=== PATIENT | female | born 1945 | race Two or more races ===

== ENCOUNTER 2021-04-10 15:54 | Inpatient (IN) | payer OTHER ==
[~2021-04-10] VITALS: Ht 162.6 cm; Wt 69.6 kg
[2021-04-10] MEDS ORDERED: MORPHINE SULFATE 4 MG/ML SYR/VIAL IV ONE (16:30)
[2021-04-10] MEDS ORDERED: ONDANSETRON HCL 4 MG/2 ML VIAL IV ONE (16:30)
[2021-04-10 16:45] LABS: Basophils # (auto) 0 10 ^3/uL (0-0.2); Basophils % (auto) 0.8 % (0.0-2.0); Eosinophils # (auto) 0.1 10 ^3/uL (0-0.8); Eosinophils % (auto) 1.8 % (0.0-7.0); Hematocrit 40.6 % (36.0-46.0); Hemoglobin 14.2 g/dL (12.2-16.2); Lymphocytes # (auto) 0.9 10 ^3/uL (0.4-5.4); Lymphocytes % (auto) 16.8 % (10.0-50.0); Mean Corpuscular Hemoglobin 30.7 pg (28.0-32.0); Mean Corpuscular Hgb Conc. 35.1 g/dL (32.0-36.0); Mean Corpuscular Volume 87.6 fL (80.0-100.0); Monocytes # (auto) 0.3 10 ^3/uL (0-1.3); Neutrophils # (auto) 4.1 10 ^3/uL (1.6-8.6); Neutrophils % (auto) 74.6 % (37.0-80.0); Nucleated Red Blood Cells % 0.1 %; Platelet Count (auto) 124 10^3/uL (140-450); Red Blood Cells 4.63 10^6/uL (4.0-5.20); Red Cell Distribution Width 13.9 % (11.8-14.3); White Blood Cell 5.5 10^3/uL (4.4-10.8)
[2021-04-10 16:56] LABS: Albumin 3.5 g/dL (3.4-5.0); Amylase 45 U/L (25-115); Anion Gap 8 (5-15); BUN/Creatinine Ratio 12.9; Blood Urea Nitrogen 11 mg/dL (7-18); Calcium 10.6 mg/dL (8.5-10.1); Carbon Dioxide 22 mmol/L (21-32); Chloride 110 mmol/L (98-107); GFR African American 84 mL/min; GFR Non-African American 69 mL/min; Glucose 157 mg/dL (74-106); Lipase 112 U/L (73-393); Sodium 140 mmol/L (136-145)
[2021-04-10 17:02] LABS: Alanine Aminotransferase 17 U/L (13-56); Alkaline Phosphatase 147 U/L (45-117); Aspartate Aminotransferase 16 U/L (15-37); Bilirubin, Total 0.7 mg/dL (0.2-1.0); Total Protein 7.3 g/dL (6.4-8.2)
[2021-04-10 17:15] LABS: Urine Blood 3+ /uL (Negative); Urine Mucus FEW (None Seen); Urine Specific Gravity 1.014 (1.001-1.035); Urine WBC 26 /hpf (0 - 5)
[2021-04-10] MEDS ORDERED: ACETAMINOPHEN 325 MG TAB PO ONE (17:15)
[2021-04-10 17:16] LABS: Urine Bacteria FEW /hpf (None Seen)
[2021-04-10] MEDS ORDERED: HYDROmorphone HCL 2 MG/ML VL IV PRN (17:30)
[2021-04-10] MEDS ORDERED: ACETAMINOPHEN 500 MG TAB PO PRN (17:30)
[2021-04-10] MEDS ORDERED: DEXTROSE (50%) 50ML SYRG IV PRN (17:30)
[2021-04-10] MEDS ORDERED: ISOSORBIDE DINITRATE 10 MG TAB PO ONE (17:30)
[2021-04-10] MEDS ORDERED: ONDANSETRON HCL 4 MG/2 ML VIAL IV PRN (17:30)
[2021-04-10] MEDS ORDERED: cefTRIAXone 1GM/50ML D5W 50 ML IV ONE (17:30)
[2021-04-10] MEDS ORDERED: DOXAZOSIN MESYL 2 MG TAB PO ONE (17:30)
[2021-04-10] MEDS ORDERED: HYDROcodone-ACET 5/325MG TAB PO PRN (17:30)
[2021-04-10] MEDS ORDERED: GLUCAGON HYDROCHLORIDE (RDNA) 1 MG VIAL IM ONE (17:30)
[2021-04-10] MEDS ORDERED: LACTULOSE 20Gm/30ML SOLN PO PRN (17:30)
[2021-04-10] MEDS ORDERED: NITROGLYCERIN 0.4 MG SL TAB SL PRN (17:30)
[2021-04-10] MEDS: SODIUM CHLORIDE 0.9% 1,000 ML IV SCH (17:58)
[2021-04-10] MEDS ORDERED: LEVOTHYROXINE SODIUM 25 MCG TAB PO ONE (20:00)
[2021-04-10] MEDS ORDERED: ENOXAPARIN SOD 80 MG/0.8ML SYRINGE SC SCH (22:00)
[2021-04-10] MEDS: ACCU-CHEK COMFORT CURVE STRIP VI SCH (22:15)
[2021-04-10] MEDS: InsuLIN REG 1unit/0.01ml Soln (100units/ml) SC SCH (22:26)
[2021-04-10] MEDS: FAMOTIDINE 20 MG TAB PO SCH (22:27)
[2021-04-11 02:40] VITALS: BP 135/72
[2021-04-11] MEDS: SODIUM CHLORIDE 0.9% 1,000 ML IV SCH ×3 (03:30→18:17)
[2021-04-11] MEDS ORDERED: CHOL20007 PO (03:56)
[2021-04-11] MEDS ORDERED: LEV75T PO (03:56)
[2021-04-11] MEDS ORDERED: CYAN-17 PO (03:56)
[2021-04-11 05:00] VITALS: BP 122/63
[2021-04-11] MEDS: ISOSORBIDE DINITRATE 10 MG TAB PO SCH ×3 (06:05→17:43)
[2021-04-11] MEDS: LEVOTHYROXINE SODIUM 25 MCG TAB PO SCH (06:49)
[2021-04-11] MEDS: InsuLIN REG 1unit/0.01ml Soln (100units/ml) SC SCH ×4 (06:51→21:45)
[2021-04-11] MEDS: ACCU-CHEK COMFORT CURVE STRIP VI SCH ×4 (06:51→21:45)
[2021-04-11 09:00] VITALS: BP 120/57
[2021-04-11] MEDS: FAMOTIDINE 20 MG TAB PO SCH ×2 (10:47→21:45)
[2021-04-11] MEDS ORDERED: MANNITOL 20% SOLN 100 gm/500ml 100 ML IV ONE (11:30)
[2021-04-11] MEDS: DOXAZOSIN MESYL 2 MG TAB PO SCH ×2 (11:56→21:46)
[2021-04-11] MEDS: cefTRIAXone 1GM/50ML D5W 50 ML IV SCH (11:56)
[2021-04-11 13:00] VITALS: BP 131/68
[2021-04-11 17:30] VITALS: BP 133/62
[2021-04-11 22:00] VITALS: BP 112/58
[2021-04-12 05:00] VITALS: BP 152/72
[2021-04-12] MEDS: ISOSORBIDE DINITRATE 10 MG TAB PO SCH ×5 (06:00→17:22)
[2021-04-12] MEDS: ACCU-CHEK COMFORT CURVE STRIP VI SCH ×4 (06:15→21:40)
[2021-04-12] MEDS: LEVOTHYROXINE SODIUM 25 MCG TAB PO SCH ×2 (06:15→06:31)
[2021-04-12] MEDS: InsuLIN REG 1unit/0.01ml Soln (100units/ml) SC SCH ×4 (06:31→21:40)
[2021-04-12 08:00] VITALS: BP 164/70
[2021-04-12] MEDS: SODIUM CHLORIDE 0.9% 1,000 ML IV SCH ×2 (09:30→19:30)
[2021-04-12] MEDS: FAMOTIDINE 20 MG TAB PO SCH (09:41)
[2021-04-12] MEDS: DOXAZOSIN MESYL 2 MG TAB PO SCH ×2 (09:41→21:58)
[2021-04-12] MEDS: cefTRIAXone 1GM/50ML D5W 50 ML IV SCH (09:41)
[2021-04-12] MEDS ORDERED: HCTZ 25 MG TAB PO ONE (11:00)
[2021-04-12 11:59] VITALS: BP 152/71
[2021-04-12] MEDS ORDERED: MINOXIDIL 2.5 MG TAB PO SCH (12:30)
[2021-04-12 16:00] VITALS: BP 134/72
[2021-04-12] MEDS ORDERED: MANNITOL FTV 25% 12.5 GM/50 ML 50 ML IV ONE (20:15)
[2021-04-12 21:47] VITALS: BP 129/75
[2021-04-13] MEDS ORDERED: HCTZ 25 MG TAB PO SCH (10:00)
[2021-04-13] MEDS ORDERED: FAMOTIDINE 20 MG TAB PO SCH (10:00)
== END 2021-04-12 23:15 | disposition left against medical advice (07) | DRG 690 ==
LOC: ER 15:54 → TELE 17:22 → TELE-EAST 22:32
PROVIDERS: ADMIT Internal Medicine; ATTEND Family Medicine
DX: N13.6 Pyonephrosis (principal); I48.91 Unspecified atrial fibrillation; I16.0 Hypertensive urgency; E03.9 Hypothyroidism, unspecified; K57.30 Diverticulosis of large intestine without perforation or abscess without bleeding; Z87.19 Personal history of other diseases of the digestive system; I10 Essential (primary) hypertension; Z53.29 Procedure and treatment not carried out because of patient's decision for other reasons; K21.9 Gastro-esophageal reflux disease without esophagitis; F41.9 Anxiety disorder, unspecified; R00.1 Bradycardia, unspecified; E66.9 Obesity, unspecified; E11.9 Type 2 diabetes mellitus without complications; Z88.8 Allergy status to other drugs, medicaments and biological substances; Z88.5 Allergy status to narcotic agent; Z88.0 Allergy status to penicillin; Z88.2 Allergy status to sulfonamides; Z85.3 Personal history of malignant neoplasm of breast; Z79.899 Other long term (current) drug therapy; Z80.3 Family history of malignant neoplasm of breast; Z80.1 Family history of malignant neoplasm of trachea, bronchus and lung; Z83.3 Family history of diabetes mellitus; Z90.11 Acquired absence of right breast and nipple; Z90.710 Acquired absence of both cervix and uterus; Z90.49 Acquired absence of other specified parts of digestive tract; Z86.73 Personal history of transient ischemic attack (TIA), and cerebral infarction without residual deficits; Z68.25 Body mass index [BMI] 25.0-25.9, adult; Z91.19 Patient's noncompliance with other medical treatment and regimen; Z82.3 Family history of stroke; Z82.49 Family history of ischemic heart disease and other diseases of the circulatory system; Z20.822 Contact with and (suspected) exposure to COVID-19
CPT/HCPCS: 36415; 71045; 73562; 74018; 74176; 76775; 80053; 81001; 82150; 82550; 82565; 82962; 83036; 83690; 83880; 84443; 84484; 85025; 85049; 87086; 87426; 93005; 93306; 93971; 96365; 96372; 96375; G0378; J0696; J1815; J2405

== ENCOUNTER 2021-06-10 11:23 | Inpatient (IN) | payer OTHER ==
[~2021-06-10] VITALS: Ht 162.6 cm; Wt 71.6 kg
[~2021-06-10 11:23] MED LIST: CHOL20007 PO; CYAN-17 PO; LEV75T PO
[2021-06-10 12:06] LABS: Basophils # (auto) 0 10 ^3/uL (0-0.2); Basophils % (auto) 0.6 % (0.0-2.0); Eosinophils # (auto) 0.1 10 ^3/uL (0-0.8); Eosinophils % (auto) 2.2 % (0.0-7.0); Hematocrit 40.7 % (36.0-46.0); Hemoglobin 14.1 g/dL (12.2-16.2); Lymphocytes # (auto) 0.9 10 ^3/uL (0.4-5.4); Mean Corpuscular Hemoglobin 30.8 pg (28.0-32.0); Mean Corpuscular Hgb Conc. 34.6 g/dL (32.0-36.0); Mean Corpuscular Volume 89.3 fL (80.0-100.0); Monocytes # (auto) 0.3 10 ^3/uL (0-1.3); Monocytes % (auto) 5.8 % (0.0-12.0); Neutrophils # (auto) 3.4 10 ^3/uL (1.6-8.6); Neutrophils % (auto) 72.4 % (37.0-80.0); Nucleated Red Blood Cells % 0.1 %; Red Blood Cells 4.56 10^6/uL (4.0-5.20); Red Cell Distribution Width 14.3 % (11.8-14.3); White Blood Cell 4.6 10^3/uL (4.4-10.8)
[2021-06-10 12:27] LABS: Albumin 3.4 g/dL (3.4-5.0); Calcium 10.7 mg/dL (8.5-10.1)
[2021-06-10 12:32] LABS: BUN/Creatinine Ratio 12.8; Bilirubin, Total 1.4 mg/dL (0.2-1.0); Total Protein 6.9 g/dL (6.4-8.2)
[2021-06-10 16:22] LABS: Urine Bacteria FEW /hpf (None Seen); Urine Blood 3+ /uL (Negative); Urine Specific Gravity 1.005 (1.001-1.035); Urine WBC 2 /hpf (0 - 5)
[2021-06-10] MEDS ORDERED: KETOROLAC TROMETH 30 MG/ML 1ML VIAL IV ONE (17:00)
[2021-06-10] MEDS ORDERED: SODIUM CHLORIDE 0.9% 1,000 ML IV ONE ×2 (17:00)
[2021-06-10] MEDS ORDERED: TAMSULOSIN HYDROCHLORIDE 0.4 MG CAP PO ONE (17:00)
[2021-06-10] MEDS ORDERED: NITROGLYCERIN 0.4 MG SL TAB SL PRN ×2 (17:30→20:15)
[2021-06-10] MEDS ORDERED: MORPHINE SULFATE INJECTION 2 MG/ML SYRG IV PRN ×3 (17:30→20:15)
[2021-06-10] MEDS ORDERED: HYDROcodone-ACET 5/325MG TAB PO PRN ×2 (20:15→20:45)
[2021-06-10] MEDS ORDERED: DOCUSATE SOD 100 MG CAP PO PRN (20:15)
[2021-06-10] MEDS ORDERED: ALUM & MAG HYDROX-SIMETH LIQ(MAALOX) 30 ML PO PRN (20:15)
[2021-06-10] MEDS ORDERED: MEROPENEM 1GM IVPB 100 ML IV ONE (20:15)
[2021-06-10] MEDS ORDERED: ACETAMINOPHEN 325 MG TAB PO PRN (20:15)
[2021-06-10] MEDS ORDERED: hydrALAZINE HCL 20 MG/ML VL IV PRN (20:15)
[2021-06-10] MEDS ORDERED: LACTATED RINGER'S 1,000 ML IV ONE (20:15)
[2021-06-10] MEDS ORDERED: ONDANSETRON HCL 4 MG/2 ML VIAL IV PRN (20:15)
[2021-06-10] MEDS: SODIUM CHLORIDE 0.9% 1,000 ML IV SCH (20:29)
[2021-06-10] MEDS ORDERED: ATORVASTATIN 20 MG TAB PO SCH (22:00)
[2021-06-10 22:36] LABS: Uric Acid 5.5 mg/dL (2.6-6.0)
[2021-06-10 22:41] LABS: Cholesterol 204 mg/dL (< 200); HDL Cholesterol 38 mg/dL (40-59); LDL Cholesterol 134 mg/dL (< 100); Triglycerides 154 mg/dL (< 150)
[2021-06-10 22:45] LABS: Free T3 2.04 pg/mL (2.3-4.2); Free T4 (Free Thyroxine) 0.74 ng/dL (0.89-1.76)
[2021-06-10 22:50] LABS: Amphetamine Screen, Urine NEGATIVE (NEGATIVE); Barbiturate Scree,Urine NEGATIVE (NEGATIVE); Benzodiazephine Screen, Urine NEGATIVE (NEGATIVE); Cannabinoid Screen, Urine NEGATIVE (NEGATIVE); Cocaine Screen, Urine NEGATIVE (NEGATIVE); Opiate Scree,Urine NEGATIVE (NEGATIVE); Phencyclidine Screen, Urine NEGATIVE (NEGATIVE)
[2021-06-11] VITALS: BP 162/79
[2021-06-11] MEDS: SODIUM CHLORIDE 0.9% 1,000 ML IV SCH ×3 (04:05→20:15)
[2021-06-11 05:32] VITALS: BP 159/63
[2021-06-11] MEDS: FUROSEMIDE 20 MG/2 ML VIAL IV SCH ×2 (05:40→17:12)
[2021-06-11] MEDS: LEVOTHYROXINE SODIUM 25 MCG TAB PO SCH (06:33)
[2021-06-11] MEDS: MEROPENEM 1GM IVPB 100 ML IV SCH ×2 (08:00→19:33)
[2021-06-11 09:00] VITALS: BP 154/70
[2021-06-11] MEDS: CYANOCOBALAMIN 500 MCG TAB PO SCH (09:09)
[2021-06-11] MEDS: ISOSORBIDE MONONITRATE ER 60 MG TAB PO SCH (09:09)
[2021-06-11] MEDS: CHOLECALCIFEROL (VITD3) 2,000 UNIT CAP/TAB PO SCH (09:10)
[2021-06-11] MEDS: ENOXAPARIN SOD 40 MG/0.4 ML SYRINGE SC SCH (09:10)
[2021-06-11] MEDS: ASPirin 81 mg TAB PO SCH (10:00)
[2021-06-11] MEDS ORDERED: DEXTROSE (50%) 50ML SYRG IV PRN (10:45)
[2021-06-11] MEDS ORDERED: ATENOLOL 50 MG TAB PO ONE (10:45)
[2021-06-11] MEDS: ACCU-CHEK COMFORT CURVE STRIP VI SCH ×3 (11:30→21:35)
[2021-06-11] MEDS: InsuLIN REG 1unit/0.01ml Soln (100units/ml) SC SCH ×3 (11:30→21:36)
[2021-06-11 13:00] VITALS: BP 149/79
[2021-06-11 17:00] VITALS: BP 151/63
[2021-06-11] MEDS: TAMSULOSIN HYDROCHLORIDE 0.4 MG CAP PO SCH (17:13)
[2021-06-11 22:00] VITALS: BP 119/60
[2021-06-12] MEDS: SODIUM CHLORIDE 0.9% 1,000 ML IV SCH ×3 (01:17→20:35)
[2021-06-12] MEDS: LORazepam 0.5 MG TAB PO PRN ×2 (02:23→23:09)
[2021-06-12 05:00] VITALS: BP 134/59
[2021-06-12] MEDS: FUROSEMIDE 20 MG/2 ML VIAL IV SCH ×2 (05:35→16:53)
[2021-06-12] MEDS: LEVOTHYROXINE SODIUM 25 MCG TAB PO SCH (06:07)
[2021-06-12] MEDS: ACCU-CHEK COMFORT CURVE STRIP VI SCH ×4 (06:29→22:00)
[2021-06-12] MEDS: InsuLIN REG 1unit/0.01ml Soln (100units/ml) SC SCH ×4 (06:29→22:00)
[2021-06-12 06:57] LABS: Basophils # (auto) 0 10 ^3/uL (0-0.2); Basophils % (auto) 0.4 % (0.0-2.0); Eosinophils # (auto) 0.1 10 ^3/uL (0-0.8); Eosinophils % (auto) 3.9 % (0.0-7.0); Hematocrit 35.6 % (36.0-46.0); Hemoglobin 12.4 g/dL (12.2-16.2); Lymphocytes # (auto) 1.1 10 ^3/uL (0.4-5.4); Lymphocytes % (auto) 34.5 % (10.0-50.0); Mean Corpuscular Hgb Conc. 34.9 g/dL (32.0-36.0); Mean Corpuscular Volume 88.8 fL (80.0-100.0); Monocytes # (auto) 0.2 10 ^3/uL (0-1.3); Monocytes % (auto) 6.7 % (0.0-12.0); Neutrophils # (auto) 1.7 10 ^3/uL (1.6-8.6); Neutrophils % (auto) 54.5 % (37.0-80.0); Nucleated Red Blood Cells % 0.1 %; Red Blood Cells 4.01 10^6/uL (4.0-5.20); Red Cell Distribution Width 14.1 % (11.8-14.3); White Blood Cell 3.1 10^3/uL (4.4-10.8)
[2021-06-12 07:12] LABS: Potassium 3.5 mmol/L (3.5-5.1)
[2021-06-12 07:18] LABS: Albumin 2.6 g/dL (3.4-5.0); Calcium 9.3 mg/dL (8.5-10.1)
[2021-06-12 07:33] LABS: Bilirubin, Total 1.2 mg/dL (0.2-1.0); Total Protein 5.7 g/dL (6.4-8.2)
[2021-06-12] MEDS: ENOXAPARIN SOD 40 MG/0.4 ML SYRINGE SC SCH (08:02)
[2021-06-12] MEDS: MEROPENEM 1GM IVPB 100 ML IV SCH ×2 (08:02→17:16)
[2021-06-12] MEDS: CYANOCOBALAMIN 500 MCG TAB PO SCH (08:02)
[2021-06-12] MEDS: ASPirin 81 mg TAB PO SCH (08:02)
[2021-06-12] MEDS: CHOLECALCIFEROL (VITD3) 2,000 UNIT CAP/TAB PO SCH (08:03)
[2021-06-12] MEDS: ISOSORBIDE MONONITRATE ER 60 MG TAB PO SCH (08:38)
[2021-06-12] MEDS: ATENOLOL 50 MG TAB PO SCH (08:39)
[2021-06-12 09:00] VITALS: BP 150/59
[2021-06-12 13:00] VITALS: BP 152/62
[2021-06-12 14:36] LABS: INR 1.17 (0.9-1.15); Partial Thromboplastin Time 22.2 sec (23.6-33.0)
[2021-06-12] MEDS: TAMSULOSIN HYDROCHLORIDE 0.4 MG CAP PO SCH (16:53)
[2021-06-12] MEDS: Glucerna Carbsteady SHAKE Vanilla 8oz PO SCH (16:53)
[2021-06-12 17:00] VITALS: BP 137/61
[2021-06-12 22:00] VITALS: BP 126/72
[2021-06-13] MEDS: MEROPENEM 1GM IVPB 100 ML IV SCH ×3 (02:20→17:31)
[2021-06-13] MEDS: SODIUM CHLORIDE 0.9% 1,000 ML IV SCH ×2 (04:15→12:15)
[2021-06-13 05:21] LABS: Basophils # (auto) 0 10 ^3/uL (0-0.2); Basophils % (auto) 0.7 % (0.0-2.0); Eosinophils # (auto) 0.1 10 ^3/uL (0-0.8); Eosinophils % (auto) 4.4 % (0.0-7.0); Hemoglobin 12.1 g/dL (12.2-16.2); Lymphocytes # (auto) 1.1 10 ^3/uL (0.4-5.4); Lymphocytes % (auto) 34.6 % (10.0-50.0); Mean Corpuscular Hemoglobin 30.8 pg (28.0-32.0); Mean Corpuscular Hgb Conc. 33.7 g/dL (32.0-36.0); Mean Corpuscular Volume 91.4 fL (80.0-100.0); Monocytes # (auto) 0.3 10 ^3/uL (0-1.3); Neutrophils # (auto) 1.6 10 ^3/uL (1.6-8.6); Neutrophils % (auto) 51.3 % (37.0-80.0); Nucleated Red Blood Cells % 0.2 %; Red Blood Cells 3.94 10^6/uL (4.0-5.20)
[2021-06-13 05:47] LABS: Albumin 2.7 g/dL (3.4-5.0); BUN/Creatinine Ratio 17.5; Calcium 9.9 mg/dL (8.5-10.1); Potassium 3.3 mmol/L (3.5-5.1)
[2021-06-13 05:50] LABS: Bilirubin, Total 0.9 mg/dL (0.2-1.0); Total Protein 5.8 g/dL (6.4-8.2)
[2021-06-13] MEDS: FUROSEMIDE 20 MG/2 ML VIAL IV SCH ×2 (06:03→17:32)
[2021-06-13] MEDS: ACCU-CHEK COMFORT CURVE STRIP VI SCH ×4 (06:03→22:00)
[2021-06-13] MEDS: InsuLIN REG 1unit/0.01ml Soln (100units/ml) SC SCH ×4 (06:03→22:35)
[2021-06-13] MEDS: LEVOTHYROXINE SODIUM 25 MCG TAB PO SCH (06:03)
[2021-06-13] MEDS ORDERED: IOHEXOL 300 MG/ML 100ML BOTTLE IJ ONE (07:47)
[2021-06-13] MEDS: Glucerna Carbsteady SHAKE Vanilla 8oz PO SCH ×3 (08:00→18:18)
[2021-06-13] MEDS ORDERED: MIDAZOLAM HCL 2MG/2ML 2ml VIAL (1mg/ml) ONE (08:34)
[2021-06-13] MEDS ORDERED: fentaNYL CITRATE 100 MCG/2 ML VL ONE (08:34)
[2021-06-13] MEDS ORDERED: DexAMETHasone SOD PHOS 10MG/1ML VIAL INJ ONE (08:52)
[2021-06-13] MEDS ORDERED: PROPOFOL 10 MG/ML 20 ML IV ONE (08:52)
[2021-06-13] MEDS ORDERED: HYDROmorphone HCL 2 MG/ML VL IV PRN (09:00)
[2021-06-13] MEDS ORDERED: ONDANSETRON HCL 4 MG/2 ML VIAL IV PRN (09:00)
[2021-06-13] MEDS ORDERED: fentaNYL CITRATE 100 MCG/2 ML VL IV PRN (09:00)
[2021-06-13] MEDS ORDERED: ACCU-CHEK COMFORT CURVE STRIP VI ONE (09:00)
[2021-06-13] MEDS ORDERED: LABETALOL HCL 5 MG/ML 4ML SYRINGE IV PRN (09:00)
[2021-06-13] MEDS ORDERED: ePHEDrine SULFATE 50 MG/ML AMP IV PRN (09:00)
[2021-06-13] MEDS ORDERED: MIDAZOLAM HCL 2MG/2ML 2ml VIAL (1mg/ml) IV PRN (09:00)
[2021-06-13] MEDS: ASPirin 81 mg TAB PO SCH (11:52)
[2021-06-13] MEDS: ISOSORBIDE MONONITRATE ER 60 MG TAB PO SCH (11:53)
[2021-06-13] MEDS: CYANOCOBALAMIN 500 MCG TAB PO SCH (11:53)
[2021-06-13] MEDS: ATENOLOL 50 MG TAB PO SCH (11:53)
[2021-06-13] MEDS: ENOXAPARIN SOD 40 MG/0.4 ML SYRINGE SC SCH (11:54)
[2021-06-13] MEDS: CHOLECALCIFEROL (VITD3) 2,000 UNIT CAP/TAB PO SCH (11:54)
[2021-06-13] MEDS: TAMSULOSIN HYDROCHLORIDE 0.4 MG CAP PO SCH (17:32)
[2021-06-13] MEDS ORDERED: POTASSIUM EFFERVESENT TAB 25 MEQ PO ONE (19:00)
[2021-06-13 22:00] VITALS: BP 119/67
[2021-06-13] MEDS: LORazepam 0.5 MG TAB PO PRN (22:46)
[2021-06-14] MEDS: MEROPENEM 1GM IVPB 100 ML IV SCH ×3 (01:05→10:00)
[2021-06-14] MEDS: InsuLIN REG 1unit/0.01ml Soln (100units/ml) SC SCH ×4 (05:54→22:32)
[2021-06-14] MEDS: FUROSEMIDE 20 MG/2 ML VIAL IV SCH ×2 (05:55→17:44)
[2021-06-14] MEDS: LEVOTHYROXINE SODIUM 25 MCG TAB PO SCH (05:55)
[2021-06-14 05:58] VITALS: BP 113/97
[2021-06-14 06:10] LABS: Basophils # (auto) 0 10 ^3/uL (0-0.2); Basophils % (auto) 0.2 % (0.0-2.0); Eosinophils # (auto) 0 10 ^3/uL (0-0.8); Hematocrit 36.6 % (36.0-46.0); Hemoglobin 12.8 g/dL (12.2-16.2); Lymphocytes # (auto) 0.7 10 ^3/uL (0.4-5.4); Lymphocytes % (auto) 11.9 % (10.0-50.0); Mean Corpuscular Hemoglobin 31.2 pg (28.0-32.0); Mean Corpuscular Volume 89.2 fL (80.0-100.0); Monocytes # (auto) 0.3 10 ^3/uL (0-1.3); Monocytes % (auto) 5.2 % (0.0-12.0); Neutrophils # (auto) 4.7 10 ^3/uL (1.6-8.6); Neutrophils % (auto) 82.7 % (37.0-80.0); Nucleated Red Blood Cells % 0.1 %; Red Blood Cells 4.11 10^6/uL (4.0-5.20); White Blood Cell 5.7 10^3/uL (4.4-10.8)
[2021-06-14 06:52] LABS: Potassium 3.6 mmol/L (3.5-5.1)
[2021-06-14 06:56] LABS: Albumin 3.1 g/dL (3.4-5.0); BUN/Creatinine Ratio 17.6; Calcium 10.8 mg/dL (8.5-10.1)
[2021-06-14 06:59] LABS: Bilirubin, Total 0.7 mg/dL (0.2-1.0); Total Protein 6.5 g/dL (6.4-8.2)
[2021-06-14] MEDS: ACCU-CHEK COMFORT CURVE STRIP VI SCH ×4 (07:14→22:32)
[2021-06-14] MEDS: Glucerna Carbsteady SHAKE Vanilla 8oz PO SCH ×3 (08:49→18:13)
[2021-06-14] MEDS: ASPirin 81 mg TAB PO SCH (08:50)
[2021-06-14] MEDS: CHOLECALCIFEROL (VITD3) 2,000 UNIT CAP/TAB PO SCH (08:52)
[2021-06-14] MEDS: ENOXAPARIN SOD 40 MG/0.4 ML SYRINGE SC SCH (08:52)
[2021-06-14] MEDS: CYANOCOBALAMIN 500 MCG TAB PO SCH (08:52)
[2021-06-14] MEDS: ATENOLOL 50 MG TAB PO SCH (08:58)
[2021-06-14] MEDS: ISOSORBIDE MONONITRATE ER 60 MG TAB PO SCH (09:03)
[2021-06-14 09:14] VITALS: BP 132/64
[2021-06-14 13:00] VITALS: BP 161/69
[2021-06-14] MEDS ORDERED: POLYETHYLENE GLYCOL 17 GM PWDR PO ONE (15:15)
[2021-06-14] MEDS: TAMSULOSIN HYDROCHLORIDE 0.4 MG CAP PO SCH (17:44)
[2021-06-14 22:32] VITALS: BP 135/60
[2021-06-15 05:34] VITALS: BP 141/73
[2021-06-15] MEDS: FUROSEMIDE 20 MG/2 ML VIAL IV SCH (06:00)
[2021-06-15 06:24] LABS: Magnesium 1.9 mg/dL (1.6-2.6); Potassium 3.3 mmol/L (3.5-5.1)
[2021-06-15 06:26] LABS: BUN/Creatinine Ratio 24.7
[2021-06-15 06:29] LABS: Bilirubin, Total 0.7 mg/dL (0.2-1.0); Phosphorus 2.6 mg/dL (2.5-4.90); Total Protein 6.1 g/dL (6.4-8.2)
[2021-06-15] MEDS: ACCU-CHEK COMFORT CURVE STRIP VI SCH ×2 (06:46→11:33)
[2021-06-15] MEDS: InsuLIN REG 1unit/0.01ml Soln (100units/ml) SC SCH ×2 (06:47→11:30)
[2021-06-15] MEDS: LEVOTHYROXINE SODIUM 25 MCG TAB PO SCH (06:47)
[2021-06-15] MEDS ORDERED: POTASSIUM CHL 20 Meq TABLET PO ONE (07:30)
[2021-06-15 08:00] VITALS: BP 149/64
[2021-06-15] MEDS ORDERED: cefTRIAXone 1GM/50ML D5W 50 ML IV SCH (09:00)
[2021-06-15] MEDS: Glucerna Carbsteady SHAKE Vanilla 8oz PO SCH ×2 (09:26→12:00)
[2021-06-15] MEDS: ASPirin 81 mg TAB PO SCH (09:27)
[2021-06-15] MEDS: ISOSORBIDE MONONITRATE ER 60 MG TAB PO SCH (09:28)
[2021-06-15] MEDS: ATENOLOL 50 MG TAB PO SCH (09:28)
[2021-06-15] MEDS: CHOLECALCIFEROL (VITD3) 2,000 UNIT CAP/TAB PO SCH (09:29)
[2021-06-15] MEDS: CYANOCOBALAMIN 500 MCG TAB PO SCH (09:29)
[2021-06-15] MEDS: ENOXAPARIN SOD 40 MG/0.4 ML SYRINGE SC SCH (09:29)
[2021-06-15] MEDS ORDERED: POLYETHYLENE GLYCOL 17 GM PWDR PO SCH (10:00)
[2021-06-15] MEDS ORDERED: TAMS1CAP25 PO (14:42)
[2021-06-15 15:36] VITALS: BP 135/72
== END 2021-06-15 16:20 | disposition home or self-care (01) | DRG 659 ==
LOC: ER 11:23 → OVERFLOW 17:29 → WEST WING 23:25
PROVIDERS: ADMIT Hospitalist; ATTEND Internal Medicine
PROC: BT1F1ZZ Fluoroscopy of Left Kidney, Ureter and Bladder using Low Osmolar Contrast (ICD-10-PCS; 2021-06-13)
PROC: 0T778DZ Dilation of Left Ureter with Intraluminal Device, Via Natural or Artificial Opening Endoscopic (ICD-10-PCS; principal; 2021-06-13 08:33)
DX: N13.6 Pyonephrosis (principal); I50.33 Acute on chronic diastolic (congestive) heart failure; E44.0 Moderate protein-calorie malnutrition; I16.9 Hypertensive crisis, unspecified; C50.911 Malignant neoplasm of unspecified site of right female breast; E11.21 Type 2 diabetes mellitus with diabetic nephropathy; Z68.28 Body mass index [BMI] 28.0-28.9, adult; I11.0 Hypertensive heart disease with heart failure; K63.5 Polyp of colon; E21.3 Hyperparathyroidism, unspecified; E21.0 Primary hyperparathyroidism; Z20.822 Contact with and (suspected) exposure to COVID-19; K21.9 Gastro-esophageal reflux disease without esophagitis; R00.1 Bradycardia, unspecified; E03.9 Hypothyroidism, unspecified; Z88.5 Allergy status to narcotic agent; Z88.0 Allergy status to penicillin; Z88.8 Allergy status to other drugs, medicaments and biological substances; Z90.49 Acquired absence of other specified parts of digestive tract; Z86.73 Personal history of transient ischemic attack (TIA), and cerebral infarction without residual deficits; Z79.84 Long term (current) use of oral hypoglycemic drugs; Z80.1 Family history of malignant neoplasm of trachea, bronchus and lung; Z80.3 Family history of malignant neoplasm of breast; Z83.3 Family history of diabetes mellitus; Z85.3 Personal history of malignant neoplasm of breast; Z87.442 Personal history of urinary calculi; Z90.710 Acquired absence of both cervix and uterus
CPT/HCPCS: 36415; 71045; 71250; 74018; 74176; 76000; 76536; 78070; 80053; 80061; 80307; 81001; 82043; 82306; 82962; 83036; 83690; 83735; 83970; 84100; 84156; 84166; 84439; 84443; 84481; 84484; 84550; 85025; 85610; 85730; 86850; 86900; 86901; 87040; 87086; 87426; 93005; 96361; 96365; 96366; 96375; G0378; J0696; J1100; J1815; J1885; J2185; J2250; J2704